=== PATIENT | male | born 1995 | race African-American/Black ===

== ENCOUNTER 2016-07-23 15:30 | Emergency (ER) | payer OTHER ==
[~2016-07-23] VITALS: Ht 180.3 cm; Wt 60.0 kg
[~2016-07-23 15:30] MED LIST: CARAFATE1 GM PO; FLEXERIL5 MG PO; NAPROSYN500 MG PO; PEPCID20 MG PO; TYLENOL WITH C1 EACH PO; ZOFRAN4 MG PO
[2016-07-23] MEDS ORDERED: FLEXERIL10 MG PO (17:11)
[2016-07-23] MEDS ORDERED: PREDNISONE10 MG PO (17:11)
[2016-07-23 17:17] VITALS: BP 142/64
== END 2016-07-23 17:24 | disposition home or self-care (01) ==
LOC: EME 15:30
DX: M54.5 Low back pain (principal)
CPT/HCPCS: 72100; 99281; 99284